=== PATIENT | male | born 1975 | race African-American/Black ===

== ENCOUNTER 2016-11-16 10:37 | Inpatient (IN) | payer OTHER ==
[~2016-11-16] VITALS: Ht 188 cm; Wt 104.3 kg
--- NOTE | ~2016-11-16 | DS ---
Unit #: [id number] #: [id number] Patient: BELKYS WILLIS [id number] [place] [address] [id number] MR#: [id number] NAME: BELKYS WILLIS. ROOM: [facility] Age: 41 Sex: M Admission Date: 11/16/2016 : 1975 Discharge Date: Attending Physician: Hadley Robison M.D. DISCHARGE SUMMARY REASON FOR ADMISSION The patient is a 41-year-old male, admitted to the [address] [place] [address] unit for opioid detox. HOSPITAL COURSE The patient was admitted to the [address] [place] [address] unit and placed on routine detoxification protocol for opioids. His stay in the hospital was a fairly uneventful one. He participated actively within the therapeutic milieu and by 11/19/2016, arrangements have been made for the patient to leave the following day for [facility] in [place]. Discharge was ordered. FINAL DIAGNOSES Opioid use disorder. DISPOSITION ON DISCHARGE No psychotropic or other medications were ordered at the time of discharge. FOLLOWUP Followup will take place through the auspices of [facility] in [place], [place]. PROGNOSIS The patient's prognosis is considered fair. Dictated by... Hadley Robison M.D. CB/tangela TD: 11/20/2016 10:54 JOB #: [id number] Unit #: [id number] #: [id number] Patient: BELKYS WILLIS DISCHARGE SUMMARY Page 1 of 1 X Hadley Robison MD X DISCHARGE SUMMARY
--- NOTE | ~2016-11-16 | PN ---
Unit #: [id number] #: [id number] Patient: BELKYS WILLIS [id number] [facility] [address] [place] [address] [id number] MR#: [id number] NAME: BELKYS WILLIS. ROOM: [facility]207 Age: 41 Sex: M Admission Date: 11/16/2016 : 1975 Attending Physician: Hadley Robison M.D. Admitting Physician: Alyssa Hernández PROGRESS NOTES DATE 11/18/2016 DISCUSSION The patient is complaining of some itching in his hand. He is reporting no suicidal ideation. We continue to await word regarding disposition the options of which had been opened greatly by the patients having been signed up for Medicaid. Dictated by... Hadley Robison M.D. CB/bzg TD: 11/18/2016 14:36 JOB #: [id number] ALYSSA PROGRESS NOTES Page 1 of 1 X Hadley Robison MD X PROGRESS NOTE
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
--- NOTE | ~2016-11-16 | DS ---
Unit #: [id number] #: [id number] Patient: BELKYS WLILIS [id number] [facility] [address] [place] [address] [id number] MR#: [id number] NAME: BELKYS WILLIS ROOM: [facility] Age: 41 Sex: M Admission Date: 11/16/2016 : 1975 Discharge Date: 11/21/2016 Attending Physician: Hadley Robison M.D. DISCHARGE SUMMARY ADDENUM Hadley Robison dictating an addendum to the previously dictated discharge summary on Belkys Willis. The addendum should read as follows: The patient is actual date of discharge is 11/21/2016. He will go to [facility] in [place], [place] on that date. Dictated by... Hadley Robison M.D. CB/clair TD: 11/20/2016 22:05 JOB #: [id number] DISCHARGE SUMMARY Page 1 of 1 X Hadley Robison MD X DISCHARGE SUMMARY
--- NOTE | ~2016-11-16 | HP ---
Unit #: [id number] #: [id number] Patient: ROLDAN WILLIS [id number] [place] [address] [id number] MR#: [id number] NAME: ROLDAN WILLIS. ROOM: [facility]207 Age: 41 Sex: M Admission Date: 11/16/2016 : 1975 Attending Physician: Hadley Robison M.D. Admitting Physician: Hadley Robison M.D. HISTORY AND PHYSICAL HISTORY OF PRESENT ILLNESS Roldan is a 41 year old admitted to [address] [place] [address] because of his drug use. He snorts heroin. PAST MEDICAL HISTORY Long history of opioid abuse to include snorting heroin. PAST SURGICAL HISTORY Nothing reported. ALLERGIES No known drug allergies. SOCIAL HISTORY Smokes less than 1/2 pack per day. Drinks alcohol on occasion. Admits to a long history of opioid abuse to include snorting heroin. FAMILY HISTORY Medically noncontributory. REVIEW OF SYSTEMS CONSTITUTIONAL: No fever or chills. HEENT: Denies any sore throat, ear pain or runny nose. CARDIOVASCULAR: Denies chest pain, irregular heart rhythm or palpitations. CHEST: Denies shortness of breath or cough. No hemoptysis. GASTROINTESTINAL: Denies nausea, vomiting, diarrhea or chronic constipation. ENDOCRINE: Denies history of increased thirst or urination. No recent significant weight loss or gain. GENITOURINARY: Denies dysuria, frequency, or hematuria. SKIN: Denies any rashes. HEMATOLOGIC: Denies history of increased bleeding or bruising. MUSCULOSKELETAL: Denies any hot, swollen joints. No generalized muscle pain. NEUROLOGIC: Denies problems with vision or speech. No frequent, severe headaches. No numbness, tingling or weakness in any extremities. Denies loss of bladder or bowel control. CURRENT MEDICATIONS Detox protocol. PHYSICAL EXAMINATION GENERAL: Alert, well-nourished, in no apparent distress. Unit #: [id number] #: [id number] Patient: ROLDAN WILLIS VITAL SIGNS: Blood pressure 150/100, heart rate 82, respirations 16, temperature 98.6. WEIGHT: 230. HEIGHT: 6 feet 2 inches. SKIN: Warm and dry without rash. He has multiple "bites" along his arms and legs. There is no increased redness, swelling, heat or pus noted. HEENT: Normocephalic. TMs not viewed. Oral and nasal passages clear. Conjunctivae clear. PERRLA. EOMs intact. NECK: Supple without lymphadenopathy or thyromegaly. HEART: Regular rate and rhythm without murmur. LUNGS: Clear. ABDOMEN: Soft, nontender. : Not done. EXTREMITIES: No evidence of cyanosis, clubbing or edema. Moves all without focal deficit. NEUROLOGICAL: Grossly within normal limits. Cranial Nerves: II: Visual thomas are intact. III, IV AND : Extraocular movements are intact. Pupils are equal, round and reactive to light. V: Facial sensation is grossly normal. VII: Facial movements and expression are normal. VIII: Auditory acuity grossly intact. IX, X: Uvula is midline. Phonation is normal. XI: Patient shrugs shoulders and turns head normally. XII: Tongue protrudes in the midline. Sensory and Motor Function: Sensory and motor sensation is grossly normal. Motor: moves all extremities well. Coordination: Gait is normal. Deep Tendon Reflexes: Intact. IMPRESSION Psychiatric admission. RECOMMENDATIONS PSYCHIATRIC: Per psychiatrist. MEDICAL: 1. See no contraindication to participate in facility's activities. 2. Continue to monitor blood pressure. He gives no history of high blood pressure. If remains high will need to address. MEDICAL PROGNOSIS Good. MEDICAL CONDITION Stable. Dictated by... Mynor HernandezAElmer. for Alyssa Godwin/zaira TD: 11/16/2016 17:39 JOB #: [id number] Unit #: [id number] #: [id number] Patient: ROLDAN WILLIS HISTORY AND PHYSICAL Page 1 of 1 X Yani Simon X HISTORY AND PHYSICAL
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
[2016-11-17 09:34] LABS: BASOPHIL% 0.4 % (0-2.5); EOSINOPHIL# 0.2 X10e3 (0-0.7); EOSINOPHIL% 2.7 % (0.0-7.0); HEMOGLOBIN 14.2 gm/dL (13.0-16.0); LYMPHOCYTE% 33.4 % (17.0-45.0); MEAN CELL VOLUME 88.2 FL (83-96); MEAN CORPUSCULAR HEMOGLOBIN 28.4 PG (28-34); MEAN CORPUSCULAR HGB CONC 32.2 g/dL (30-36); MEAN PLATELET VOLUME 10.6 FL (6.5-11.5); MONOCYTE# 0.3 X10e3 (0-1.0); MONOCYTE% 5.2 % (3.0-12.0); NEUTROPHIL# 3.5 X10e3 (1.5-7.1); NEUTROPHIL% 58.3 % (40-75); PLATELET COUNT 279 X10e3 (140-420); RED BLOOD COUNT 4.99 X10e (3.90-5.60); RED CELL DISTRIBUTION WIDTH 14.6 % (11.0-15.5)
[2016-11-17 09:39] LABS: DIFF IND NO
[2016-11-17 09:54] LABS: URINE APPEARANCE CLEAR; URINE BILIRUBIN NEG (NEG); URINE BLOOD NEG (NEG); URINE COLOR YELLOW; URINE GLUCOSE NEG (NEG); URINE KETONE NEG (NEG); URINE LEUKOCYTE ESTERASE NEG (NEG); URINE NITRATE NEG (NEG); URINE PH 7.5 (5-8); URINE PROTEIN NEG (NEG); URINE SPECIFIC GRAVITY 1.022 (1.003-1.035); URINE UROBILINOGEN 0.2 MG/DL (NEG)
[2016-11-17 09:57] LABS: ALBUMIN SERUM 3.5 g/dL (3.5-5.0); BILIRUBIN,TOTAL 0.9 mg/dL (0.2-2.0); BUN/CREATININE RATIO 8.75; CREATININE SERUM 0.8 mg/dL (0.6-1.4); GLOM FILT RATE Estimated 126.9 mL/min (>60); POTASSIUM 3.9 mmol/L (3.5-5.1); PROTEIN TOTAL SERUM 6.1 g/dL (6.0-8.3)
[2016-11-17 10:35] LABS: AMPHETAMINE NEG (NEG); BARBITURATES NEG (NEG); BENZODIAZEPINES NEG (NEG); COCAINE NEG (NEG); MARIJUANA NEG (NEG); OPIATES POS (NEG); TRICYCLIC ANTIDEPRESSANTS NEG (NEG); U METHADONE NEG (NEG)
== END 2016-11-21 09:55 | DRG 897 ==
LOC: P2S 10:37
PROVIDERS: Specialist
PROC: HZ2ZZZZ Detoxification Services for Substance Abuse Treatment (ICD-10-PCS; principal; 2016-11-16)
DX: F11.10 Opioid abuse, uncomplicated (principal); F17.200 Nicotine dependence, unspecified, uncomplicated; Z59.0 Homelessness
CPT/HCPCS: 80053; 80307; 81003; 85025